=== PATIENT | female | born 1985 | race Caucasian/White ===

== ENCOUNTER 2023-01-12 16:37 | Emergency (ER) | payer OTHER, SELFPAY ==
[2023-01-12 16:38] VITALS: BP 109/78; PULSE 71; RESP 15; TEMP 36.6; O2SAT 100
--- NOTE | 2023-01-12 16:45 | RAD_ITS ---
INDICATION: trauma EXAMINATION/TECHNIQUE: X-RAY - RIGHT XR Hand Min 3 Views 3 VIEWS COMPARISON: FINDINGS: BONES: No fracture demonstrated. JOINTS: No dislocation. SOFT TISSUES: Unremarkable. RAD/Hand Min 3 Views IMPRESSION: No evidence of fracture. Electronically Signed: Josselyn Naylor MD at 17:00 EDT ,
[2023-01-12] MEDS: HYDROcodone Bitartrate/Apap 5/325 Tablet PO (16:47)
--- NOTE | 2023-01-12 16:47 | EDS_ITS ---
HPI History of Present Illness Chief Complaint: Upper Extremity Injury Informant: patient Narrative Narrative: [id number] healthy patient states she got her right hand stuck in a log splitter. She states her entire hand hurts. She denies any other injury or pain. PFSH PFS Medical History no medical history no medical history Allergy/AdvReac Type Severity Reaction Status Date / Time No Known Allergies Allergy Verified 01/12/23 16:38 Social History Smoking Status: Never smoker alcohol intake: current alcohol intake frequency: holidays/special occasions only ROS ROS ED Constitutional Constitutional ED: Denies chills or fever(s) Musculoskeletal Musculoskeletal: Reports extremity pain; Denies neck pain Integumentary Denies Abrasions, rash or wounds Neurologic Neurologic: Denies paresthesias or weakness EXAM Physical Exam Const Vital Signs: 01/12/23 16:38 Temperature 98 F Temperature Source Temporal Pulse Rate 71 Respiratory Rate 15 Blood Pressure 109/78 Blood Pressure Mean 88 Pulse Ox 100 Oxygen Delivery Method Room Air Positive well nourished and well developed General Appearance ED: well developed and NAD Neck full ROM and supple Back/Spine normal ROM and normal to inspection Extremity Extremity Narrative: Right hand: Contusion and abrasion dorsal hand without deformity. Holding fingers in neutral position, refuses to move anything or even turn her hand over to look at the palm. No tenderness at the wrist. Refuses to move fingers to show tendon function. Neuro oriented x3, no focal motor deficits and no sensory deficits noted Sensorium / Orientation: alert Psych mental status grossly normal and thought process normal Skin Skin Narrative: Contusion/abrasion right hand, skin intact Rashes: no rashes MDM MDM MDM Narrative Medical decision making narrative: Three-view x-ray series of the right hand is reviewed by myself and interpreted by myself as normal. There are no dislocations or fractures. There is no severe soft tissue swelling. Clinically she does not have a compartment syndrome, everything is soft and nondistended, she is moving things better after nursing forced her to move her fingers for the x-ray, she was given a [place] prior to the x-ray. She is neurovascularly intact distally throughout all fingers. On the palm side, there is simply a contusion with some mild localized swelling. Intact radial pulse. I did confirm that all FDS and FDP tendon function to all fingers are intact, and she is able to oppose with the thumb. I will give her an Daniel wrap and instructions for supportive care and reasons to return, we also had her remove her rings in case things swell more. Discharge Plan Triage Chief Complaint: Upper Extremity Injury ED Provider: Lewis Gibson Dx/Rx/DC Orders Clinical Impression: Contusion of hand, right Instructions: ED Hand Contusion Primary Care Provider: Anthony Raines Referrals: Anthony Raines, [Primary Care Provider] - As Needed Activity Restrictions/Additional Instructions: Ice to affected area as needed, Tylenol/ibuprofen as needed, Daniel wrap as needed. Disposition Disposition: Home, Self Care
== END 2023-01-12 17:13 | disposition home or self-care (01) ==
LOC: ED 17:02
PROVIDERS: Emergency Provider Emergency Medicine; PCP Student in an Organized Health Care Education/Training Program; Visit Provider Emergency Medicine
DX: S60.221A Contusion of right hand, initial encounter (principal); W23.0XXA Caught, crushed, jammed, or pinched between moving objects, initial encounter
CPT/HCPCS: 73130; 99283; A4216